=== PATIENT | male | born 1965 | race Caucasian/White ===

== ENCOUNTER 2020-03-16 14:42 | Emergency (ER) | payer SELFPAY ==
[~2020-03-16] VITALS: Ht 185.4 cm; Wt 68.0 kg
[2020-03-16 14:54] VITALS: BP 103/66; Ht 185.4 cm; Wt 68.0 kg
== END 2020-03-16 15:39 | disposition left against medical advice (07) ==
LOC: ED 14:42
DX: K62.5 Hemorrhage of anus and rectum (principal); R11.10 Vomiting, unspecified; F17.210 Nicotine dependence, cigarettes, uncomplicated; R10.9 Unspecified abdominal pain; Z98.890 Other specified postprocedural states; Z86.2 Personal history of diseases of the blood and blood-forming organs and certain disorders involving the immune mechanism; Z88.5 Allergy status to narcotic agent
CPT/HCPCS: 99406